=== PATIENT | female | born 1975 | race American Indian/Alaskan Native ===

== ENCOUNTER 2017-03-05 05:54 | Day surgery (SDC) | payer MEDICAID ==
[2017-02-27 14:41] VITALS: BMI 32.8
[2017-03-05] MEDS ORDERED: Lactated Ringer's 1,000 ML IV ONE ×2 (07:35)
[2017-03-05] MEDS ORDERED: Midazolam 2 MG/2 ML VIAL ONE (07:39)
[2017-03-05] MEDS ORDERED: Propofol 10 mg/ml Inj (20 ML) ONE (07:39)
[2017-03-05] MEDS ORDERED: cefOXitin IV 1 gm in Dextrose 1 GM/50 ML BAG IVPB ONE ×2 (07:45→08:29)
[2017-03-05] MEDS ORDERED: cefOXitin IV 2 gm in Dextrose 2 GM/50 ML BAG IVPB ONE (07:46)
[2017-03-05] MEDS ORDERED: HYDROmorphone 0.5 mg/0.5 ml ISec IVP PRN (08:23)
[2017-03-05 09:10] VITALS: O2SAT 100
[2017-03-05 10:13] VITALS: BP 138/81; PULSE 59; RESP 18; TEMP 98.2
--- NOTE | 2017-03-05 12:07 | OP ---
PROCEDURE DATE: 03/05/2017 PREOPERATIVE DIAGNOSIS: Fibroid uterus menorrhagia. POSTOPERATIVE DIAGNOSIS: Fibroid uterus menorrhagia. PROCEDURE: Hysteroscopy, hysteroscopic myomectomy. FINDINGS: A 1-cm right lateral wall submucosal myoma. The remainder of the endometrial cavity is normal. SURGEON: Bre Gomez MD TYPE OF ANESTHESIA: General. ESTIMATED BLOOD LOSS: Less than 1 mL COMPLICATIONS: Nil. DESCRIPTION OF PROCEDURE: After the risks, benefits, and alternatives of the planned procedure including, but not limited to infection, hemorrhage, deep vein thrombosis, atelectasis, pneumonia, pulmonary embolism, damage to the bladder, damage to the ureter, renal insufficiency, renal failure, wound infection, wound dehiscence, incisional hernia, clot formation, damage to the large and small intestine, damage to the inferior vena cava and aorta requiring extensive repair, anesthesia complications, electrolyte imbalance, possibility of , fluid overload, cerebral edema, and other complications that were discussed, but are not listed above have been explained to the patient and all her questions were answered, informed consent was obtained, risk of recurrence and persistence of fibroids were also discussed. The patient was taken to the operating room in a stable condition and after appropriate level of general anesthesia, she was prepped and draped in a sterile fashion after having been placed in a dorsal lithotomy position. The bladder was emptied by straight catheterization. Examination under anesthesia reported normal-sized uterus, anteverted with no adnexal masses. A weighted speculum was inserted into the vagina. The anterior lip of the cervix was crossed using a single tooth tenaculum and endocervical curettage was performed and scant tissue was obtained. The uterus was sounded to 7 cm. Cervix was dilated to #16 Hanks dilator. A hysteroscope was inserted into the uterus and using a MyoSure device, a 1-cm submucosal myoma was resected up to the level of the endometrium with good hemostasis. The hysteroscope was then removed, a gentle endometrial curettage was performed and scant tissue was obtained. Instruments were removed from the vagina. There was good hemostasis. The patient was then transferred to the recovery room in a stable condition. Sponge and instrument counts were correct x2. There were no complications. Bre Gomez MD [facility] # [id number]
== END 2017-03-05 11:17 | disposition home or self-care (01) ==
LOC: C.SDS 05:54
PROVIDERS: ATTEND Obstetrics & Gynecology Reproductive Endocrinology
DX: D25.0 Submucous leiomyoma of uterus (principal); N92.0 Excessive and frequent menstruation with regular cycle
CPT/HCPCS: 58145; 88305; J0694; J1100; J1885; J2250; J2405; J2704; J3010; J7120